=== PATIENT | female | born 1995 | race Hispanic/Latino ===

== ENCOUNTER → 2018-07-11 | Day surgery (SDC) | payer BC ==
[~2018-07-11] MED LIST: DEXAMETHASONE SOD PHOS INJ 4 MG/ML VIAL ONE; FENTANYL CITRATE/PF 100MCG/2 ML INJ ONE; LIDOCAINE HCL 2% LOCAL INJ 5 ML SDV VIAL INJ ONE; METHYLERGONOVINE MALEATE 0.2 MG/ML AMP INJ ONE; MIDAZOLAM HCL 2 MG/2 ML VIAL ONE; ONDANSETRON HCL INJ 2 MG/ML VIAL ONE; PROPOFOL IV EMULSION 10 MG/ML 20 ML VIAL ONE; SEVOFLURANE INHAL SOLN 250 ML PEN BTL ONE
[2018-07-11 13:02] LABS: BASOPHILS % 0.3 % (0.0-1.0); EOSINOPHILS # (AUTO) 0.2 (0.0-0.4); EOSINOPHILS % 3.3 % (0.0-6.0); HEMATOCRIT 38.6 % (34.2-44.1); LYMPHOCYTES # (AUTO) 1.8 (1.0-3.2); LYMPHOCYTES % 31.2 % (18.0-39.1); MEAN CORPUSCULAR HEMOGLOBIN 30.9 pg (28-32); MEAN CORPUSCULAR HGB CONC 33.7 g/dL (31-35); MEAN CORPUSCULAR VOLUME 91.7 fL (81-99); MONOCYTES # (AUTO) 0.5 (0.2-0.8); MONOCYTES % 7.8 % (4.4-11.3); NEUTROPHILS # (AUTO) 3.3 (2.1-6.9); NEUTROPHILS % 57.2 % (38.7-80.0); PLATELET COUNT 278 x10e3/uL (140-360); RED BLOOD COUNT 4.21 x10e6/uL (3.6-5.1); RED CELL DISTRIBUTION WIDTH 12.8 % (11.7-14.4)
[2018-07-11 15:45] VITALS: BP 107/89
--- NOTE | 2018-07-12 10:10 | Operative Report ---
DATE OF PROCEDURE: July 11, 2018 DATA MANAGEMENT ENGINEER: None. PREOPERATIVE DIAGNOSIS: Missed . POSTOPERATIVE DIAGNOSIS: Missed . PROCEDURE PERFORMED: Suction dilatation and curettage. ANESTHESIA: General. ESTIMATED BLOOD LOSS: 200 mL. COMPLICATIONS: None. FINDINGS: Approximately 8- to 10-week sized gravid uterus with moderate products of conception. SPECIMENS: Products of conception. INDICATION: The patient is a 23-year-old 3, para 1-0-1-1, at approximately 10-week gestation by last menstrual period, who was found to have missed of approximately 6 weeks' gestational age. The risks, benefits, and alternatives were discussed including expectant and medical management, and the patient agreed to proceed with surgical management of her miscarriage. PROCEDURE NOTE: Following anesthesia, the patient was placed in the appropriate position in candycane stirrups, prepping and draping was performed, and a time out was done. A catheter was used to drain the bladder. A weighted speculum was then placed in the vagina. The cervix was grasped with a single-tooth tenaculum. Using a suction curette, the intrauterine contents were evacuated without difficulty on multiple passes. The sharp curette was then used to ensure good gritty texture in all quadrants, and the suction curette was passed once more with no additional tissue obtained. After complete evacuation of all tissue, the tenaculum was removed from the cervix, and good hemostasis was noted. The patient tolerated the procedure well. Sponge, lap, needle, and instrument counts were correct x2. The patient was transferred to the recovery room in stable condition. Job#: [id number]
== END | disposition home or self-care (01) ==
LOC: OR 11:58
PROVIDERS: ATTEND Obstetrics & Gynecology Obstetrics
DX: O02.1 Missed abortion (principal)
CPT/HCPCS: 36415; 59820; 85025; 88305; J1100; J2001; J2210; J2250; J2405